=== PATIENT | male | born 1965 | race Caucasian/White ===

== ENCOUNTER 2017-05-28 18:28 | Emergency (ER) | payer SELFPAY ==
[2017-05-28] MEDS ORDERED: NACL 0.9% 1000 ML 2,000 ML IV ONE (20:59)
[2017-05-28] MEDS ORDERED: TORADOL IV ONE (20:59)
[2017-05-28] MEDS ORDERED: TYLENOL PO ONE (20:59)
--- NOTE | 2017-05-28 21:01 | Emergency Department Report ---
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 The patient is previously known to this provider. He requests that his family, son translate for him. Patient presents to the ER with right-sided ear discomfort, pressure, complaining of body aches and painful bones. Patient also complains of a headache. The headache is not sudden or thunderclap in nature, it did not reach maximal intensity within an hour, and patient reported that it is not the worse headache of his life. There is no neck pain, there is no neck stiffness. There is no sore throat. There is no weakness, there is no numbness. Patient indicates that he thinks that he has the flu. Patient has not had his flu shot. -: Gradual Location: head, back, left, right, upper extremity, lower extremity Quality: aching Consistency: constant Improves with: none Worsens with: none Associated Symptoms: fever/chills, headaches, loss of appetite, malaise. denies : confusion, chest pain, cough, diaphoresis, nausea/vomiting, rash, seizure, shortness of breath, syncope, weakness - Related Data Previous Rx's Medication Instructions Recorded Last Taken Type Acetaminophen [Tylenol Arthritis] 650 mg PO Q6HR PRN #30 tablet.er 05/28/17 Unknown Rx Ibuprofen [Motrin] 600 mg PO Q8H PRN #30 tablet 05/28/17 Unknown Rx Oseltamivir [Tamiflu] 75 mg PO BID #9 cap 05/28/17 Unknown Rx Allergies Allergy/AdvReac Type Severity Reaction Status Date / Time No Known Allergies Allergy Unverified 05/28/17 19:24 ED Review of Systems ROS: Stated complaint: HYPERTENSIVE Other details as noted in HPI ED Past Medical Hx - Past Medical History Previous Medical History?: No - Surgical History Past Surgical History?: No - Social History Smoking Status: Never Smoker Substance Use Type: None - Medications Home Medications: Home Medications Medication Instructions Recorded Confirmed Last Taken Type Acetaminophen [Tylenol Arthritis] 650 mg PO Q6HR PRN #30 tablet.er 05/28/17 Unknown Rx Ibuprofen [Motrin] 600 mg PO Q8H PRN #30 tablet 05/28/17 Unknown Rx Oseltamivir [Tamiflu] 75 mg PO BID #9 cap 05/28/17 Unknown Rx ED Physical Exam - General Limitations: Language Barrier General appearance: alert, in no apparent distress - Head Head exam: Present: atraumatic, normocephalic - Eye Eye exam: Present: normal appearance, PERRL, EOMI. Absent: nystagmus - ENT ENT exam: Present: normal exam, normal orophraynx, mucous membranes moist, TM's normal bilaterally, normal external ear exam - Neck Neck exam: Present: normal inspection, full ROM - Respiratory Respiratory exam: Present: normal lung sounds bilaterally. Absent: respiratory distress - Cardiovascular Cardiovascular Exam: Present: normal rhythm, tachycardia, normal heart sounds. Absent: systolic murmur, diastolic murmur, rubs, gallop - GI/Abdominal GI/Abdominal exam: Present: soft, normal bowel sounds. Absent: distended, tenderness, guarding, rebound, rigid, pulsatile mass - Rectal Rectal exam: Present: deferred - Extremities Exam Extremities exam: Present: normal inspection, full ROM, normal capillary refill. Absent: tenderness, pedal edema, joint swelling, calf tenderness - Back Exam Back exam: Present: normal inspection, full ROM. Absent: tenderness, CVA tenderness (R), paraspinal tenderness, vertebral tenderness - Neurological Exam Neurological exam: Present: alert, CN II-XII intact, normal gait, other ( Extraocular movements intact. Tongue midline. No facial droop. Facial sensation intact to light touch in the V1, V2, V3 distribution bilaterally. 5 and 5 strength in 4 extremities.. Sensation is intact to light touch in 4 extremities.). Absent: motor sensory deficit - Psychiatric Psychiatric exam: Present: normal affect, normal mood - Skin Skin exam: Present: warm, dry, intact, normal color. Absent: rash ED Course Vital Signs 05/28/17 19:17 Temperature 98.2 F Pulse Rate 123 H Blood Pressure 158/107 O2 Sat by Pulse 95 Oximetry - Reevaluation(s) Reevaluation #1: 05/28/17 22:27 Differential diagnosis, including but not limited to: Influenza, viral syndrome , migraine headache, tension headache, cluster headache 05/28/17 22:27 Assessment and plan: 51-year-old male with flulike symptoms, influenza B- positive. Patient is afebrile with reassuring vital signs with the exception of tachycardia. However he appears quite comfortable, with no neck stiffness, and has a normal neurologic examination. A noncontrast CT scan demonstrated no intracranial hemorrhage, nonspecific and likely incidental abnormalities were noted. Patient has no neurologic deficits, and his history and physical are consistent with influenza rather than ischemic stroke. Given history and physical, I do not believe patient requires emergent MR imaging at this time, however he'll be instructed to follow up with outpatient primary care doctor or neurology specialist to further follow-up on CT scan incidental findings. Reevaluation #2: 05/28/17 22:35 Patient reports that he is feeling much better. He drank a pitcher of ice water. Explained to the patient's incidental CT scan findings and the importance of closely following up as an outpatient, using family to translate. Patient verbalized understanding and indicated he would follow up. Patient will be discharged was tachycardia improves. Reevaluation #3: 05/28/17 22:[address] Treasure Jimenez , who will d/c once tachycardia improved - EJ/Peripheral Line Arm R Time Out Performed: Yes Indications: other (placed iv to expedite care) Size: 20 Dressing Placed: Tegaderm Patient Tolerated Procedure: well ED Medical Decision Making - Lab Data Result diagrams: 05/28/17 21:06 05/28/17 21:06 Vital Signs 05/28/17 19:17 Temperature 98.2 F Pulse Rate 123 H Blood Pressure 158/107 O2 Sat by Pulse 95 Oximetry Lab Results 05/28/17 05/28/17 05/28/17 Range/Units 21:06 21:06 21:06 WBC 9.7 (4.5-11.0) K/mm3 RBC 5.60 H (3.65-5.03) M/mm3 Hgb 16.0 H (11.8-15.2) gm/dl Hct 48.3 H (35.5-45.6) % MCV 86 (84-94) fl MCH 29 (28-32) pg MCHC 33 (32-34) % RDW 14.0 (13.2-15.2) % Plt Count 185 (140-440) K/mm3 PT 13.3 (12.2-14.9) Sec. INR 0.96 (0.87-1.13) Sodium 139 (137-145) mmol/L Potassium 4.0 (3.6-5.0) mmol/L Chloride 100.8 (98-107) mmol/L Carbon Dioxide 24 (22-30) mmol/L Anion Gap 18 mmol/L BUN 13 (9-20) mg/dL Creatinine 0.8 (0.8-1.5) mg/dL Estimated GFR > 60 ml/min BUN/Creatinine Ratio 16 % Glucose 122 H (75-100) mg/dL Calcium 9.0 (8.4-10.2) mg/dL Free T4 (0.76-1.46) ng/dL 05/28/17 Range/Units 21:06 WBC (4.5-11.0) K/mm3 RBC (3.65-5.03) M/mm3 Hgb (11.8-15.2) gm/dl Hct (35.5-45.6) % MCV (84-94) fl MCH (28-32) pg MCHC (32-34) % RDW (13.2-15.2) % Plt Count (140-440) K/mm3 PT (12.2-14.9) Sec. INR (0.87-1.13) Sodium (137-145) mmol/L Potassium (3.6-5.0) mmol/L Chloride (98-107) mmol/L Carbon Dioxide (22-30) mmol/L Anion Gap mmol/L BUN (9-20) mg/dL Creatinine (0.8-1.5) mg/dL Estimated GFR ml/min BUN/Creatinine Ratio % Glucose (75-100) mg/dL Calcium (8.4-10.2) mg/dL Free T4 0.97 (0.76-1.46) ng/dL - Radiology Data Radiology results: report reviewed, image reviewed Referring Physician: HOANG SESAY Patient Name: CLAIRE FRANCOIS Date of : 1965 Sex: Male Report Date: 2017-05-28 Report Status: Finalized Findings [facility] [address] [place] [address] Cat Scan Report Signed Patient: CLAIRE GOINS MR#: [id number] : 1965 Acct:[id number] Age/Sex: 51 / M ADM Date: 05/28/17 Loc: ED Attending Dr: Ordering Physician: HOANG SESAY MD Date of Service: 05/28/17 Procedure(s): CT head/brain wo con Accession Number(s): [id number] cc: HOANG SESAY MD FINAL REPORT PROCEDURE: CT HEAD/BRAIN WO CON TECHNIQUE: Computerized tomography of the head was performed without contrast material. HISTORY: headache COMPARISON: No prior studies are available for comparison. FINDINGS: On images 41-47 series 2 axial images there are small thin curved bands of increased density seen in the superior aspect of the right and left parietal lobes. This is a finding of uncertain significance. I suspect these represent small vessels. The surrounding brain parenchyma is unremarkable. Brain density otherwise appears normal. The sulcal pattern and fissures are mildly prominent consistent with mild atrophy. The ventricles are normal size and are midline. No abnormal extra-axial fluid collections or masses are seen. No parenchymal masses or definite hemorrhage visualized. There is minimal nodular mucosal thickening in the left maxillary sinus. Small nodular density is seen anterior laterally in the right sphenoid sinus measuring 7.3 millimeters suggesting a small polyp or mucous retention cyst. The paranasal sinuses otherwise are clear. The mastoid air cells are clear. No evidence of skull fracture. IMPRESSION: Very thin linear bands of increased density seen in the right and left parietal lobe superiorly. These are findings of uncertain significance. I cannot exclude slow flow or thrombosis in small peripheral vessels in the right and left parietal lobe superiorly. Please see above image reference number. There is evidence of mild atrophy. No other abnormalities are identified. If clinically indicated MRI of the brain could be obtained for further evaluation and characterization. Mild paranasal sinus disease as described. Transcribed By: HAYDER Dictated By: KAMERON RIVERO MD Electronically Authenticated By: KAMERON RIVERO MD Signed Date/Time: 05/28/171743 DD/ 43 TD/TT: 05/28/171743 Critical care attestation.: If time is entered above; I have spent that time in minutes in the direct care of this critically ill patient, excluding procedure time. ED Disposition Clinical Impression: Influenza Disposition: DC- TO HOME OR SELFCARE Is pt being admited?: No Does the pt Need Aspirin: No Condition: Stable Instructions: Influenza (ED) Additional Instructions: Take the medications as directed. Follow up with a primary care doctor or neurology specialist within the next 7 days. Laboratory studies were unremarkable, however CT scan of the brain demonstrated nonspecific abnormalities, which may be incidental, but which do require follow-up as recommended. Therefore, it is very important to closely follow-up with any of the listed physicians as recommended. Return to the ER right away with new pain , worsened pain, migration of pain, confusion, weakness, numbness, unsteady gait , change in mental status, inability to tolerate liquid feeds. [employer] los medicamentos segn las indicaciones. Amberly un seguimiento con un mdico de atencin primaria o un especialista en neurologa dentro de los prximos 7 d as. Los estudios de laboratorio no fueron destacables, sin embargo, la tomograf a computarizada del cerebro demostr anormalidades inespecficas, que pueden ser incidentales, harvinder que requieren un seguimiento harris se recomienda. Por lo tanto, es muy importante realizar un seguimiento de cerca con cualquiera de los mdicos de la lista segn lo recomendado. Regrese a urgencias de inmediato con dolor nuevo, dolor empeorado, migracin de dolor, confusin, debilidad, entumecimiento, marcha inestable, cambio en el estado mental, incapacidad para tolerar alimentos lquidos. Prescriptions: Acetaminophen [Tylenol Arthritis] 650 mg PO Q6HR PRN #30 tablet.er PRN Reason: Pain Ibuprofen [Motrin] 600 mg PO Q8H PRN #30 tablet PRN Reason: Pain Oseltamivir [Tamiflu] 75 mg PO BID #9 cap Referrals: HOANG GARCIA MD [Primary Care Provider] - 3-5 Days FELICIA REYES MD [Referring] - 3-5 Days VIKI ROBLERO MD [Staff Physician] - 3-5 Days DANIEL CELAYA MD [Staff Physician] - 3-5 Days
[2017-05-28 21:15] LABS: Hematocrit 48.3 % (35.5-45.6); Mean Corpuscular HGB Conc 33 % (32-34); Mean Corpuscular Hemoglobin 29 pg (28-32); Mean Corpuscular Volume 86 fl (84-94); Platelet Count 185 K/mm3 (140-440)
[2017-05-28 21:27] LABS: INR 0.96 (0.87-1.13)
[2017-05-28 21:28] LABS: BUN/Creatinine Ratio 16; Blood Urea Nitrogen 13 mg/dL (9-20); Hemolysis Index 4
--- NOTE | 2017-05-28 21:46 | Cat Scan Report ---
FINAL REPORT PROCEDURE: CT HEAD/BRAIN WO CON TECHNIQUE: Computerized tomography of the head was performed without contrast material. HISTORY: headache COMPARISON: No prior studies are available for comparison. FINDINGS: On images 41-47 series 2 axial images there are small thin curved bands of increased density seen in the superior aspect of the right and left parietal lobes. This is a finding of uncertain significance. I suspect these represent small vessels. The surrounding brain parenchyma is unremarkable. Brain density otherwise appears normal. The sulcal pattern and fissures are mildly prominent consistent with mild atrophy. The ventricles are normal size and are midline. No abnormal extra-axial fluid collections or masses are seen. No parenchymal masses or definite hemorrhage visualized. There is minimal nodular mucosal thickening in the left maxillary sinus. Small nodular density is seen anterior laterally in the right sphenoid sinus measuring 7.3 millimeters suggesting a small polyp or mucous retention cyst. The paranasal sinuses otherwise are clear. The mastoid air cells are clear. No evidence of skull fracture. IMPRESSION: Very thin linear bands of increased density seen in the right and left parietal lobe superiorly. These are findings of uncertain significance. I cannot exclude slow flow or thrombosis in small peripheral vessels in the right and left parietal lobe superiorly. Please see above image reference number. There is evidence of mild atrophy. No other abnormalities are identified. If clinically indicated MRI of the brain could be obtained for further evaluation and characterization. Mild paranasal sinus disease as described.
[2017-05-28] MEDS ORDERED: BENADRYL IV ONE (22:27)
[2017-05-28] MEDS ORDERED: REGLAN IV ONE (22:27)
[2017-05-28] MEDS ORDERED: TAMIFLU PO ONE (23:00)
[2017-05-29 01:32] VITALS: BP 166/97
== END 2017-05-29 01:30 | disposition home or self-care (01) ==
LOC: ED 18:28
DX: J11.1 Influenza due to unidentified influenza virus with other respiratory manifestations (principal); R51 Headache; R53.83 Other fatigue; R63.0 Anorexia
CPT/HCPCS: 36415; 36569; 70450; 80048; 84439; 85027; 85610; 87400; 96361; 96374; 96375; 99284; J1200; J1885; J2765; J7030